=== PATIENT | male | born 1945 | race Caucasian/White ===

== ENCOUNTER 2021-03-04 12:47 | Inpatient (IN) | payer MEDICARE, OTHER ==
[~2021-03-04] VITALS: Ht 172.7 cm; Wt 85.7 kg
[2021-03-04 14:06] LABS: HEMOGLOBIN 13.4 gm/dl (14.0-17.5); RED BLOOD COUNT 4.39 M/UL (4.20-5.50)
[2021-03-04 14:34] LABS: BUN/CREATININE RATIO 11 (0-10)
[2021-03-04] MEDS ORDERED: COLACE 100MG C100 MG PO (17:50)
[2021-03-04] MEDS ORDERED: ASPIRIN EC81 MG PO (17:50)
[2021-03-05 01:46] LABS: HEMOGLOBIN 14.3 gm/dl (14.0-17.5); RED BLOOD COUNT 4.69 M/UL (4.20-5.50); WHITE BLOOD COUNT 12.9 K/UL (4.5-11.0)
[2021-03-05 02:15] LABS: BUN/CREATININE RATIO 15 (0-10)
[2021-03-06 05:08] LABS: HEMOGLOBIN 14.3 gm/dl (14.0-17.5); RED BLOOD COUNT 4.66 M/UL (4.20-5.50); WHITE BLOOD COUNT 10.4 K/UL (4.5-11.0)
[2021-03-06 05:24] LABS: BUN/CREATININE RATIO 15 (0-10)
[2021-03-07 05:49] LABS: HEMOGLOBIN 14.4 gm/dl (14.0-17.5); RED BLOOD COUNT 4.74 M/UL (4.20-5.50)
[2021-03-07 05:50] LABS: WHITE BLOOD COUNT 7.7 K/UL (4.5-11.0)
[2021-03-07 06:10] LABS: BUN/CREATININE RATIO 19 (0-10)
[2021-03-08 05:30] LABS: HEMOGLOBIN 14.2 gm/dl (14.0-17.5); RED BLOOD COUNT 4.67 M/UL (4.20-5.50)
[2021-03-08 05:49] LABS: BUN/CREATININE RATIO 24 (0-10)
[2021-03-08] MEDS ORDERED: HYZAAR 100-12.1 EACH PO (14:58)
[2021-03-08] MEDS ORDERED: DILTIAZEM 24HR360 MG PO (14:58)
[2021-03-08] MEDS ORDERED: COREG25 MG PO (14:58)
[2021-03-08] MEDS ORDERED: ELIQUIS 5 MG TAB5 MG PO (15:31)
[2021-03-08] MEDS ORDERED: LOPRESSOR 25 MG25 MG PO (15:31)
[2021-03-08] MEDS ORDERED: CEFUROXIME250 MG PO (15:31)
== END 2021-03-08 17:43 | disposition home or self-care (01) | DRG 308 ==
LOC: ER1 12:47 → CCU 16:07 → M/S 16:07 → CDU 16:07 → 2 EAST 18:26 → CCU 03-05 02:44 → M/S 03-07 21:30
PROVIDERS: Emergency Medicine; Physician Assistant; ADMIT Internal Medicine
PROC: B24BZZZ Ultrasonography of Heart with Aorta (ICD-10-PCS; principal; 2021-03-04)
DX: R00.1 Bradycardia, unspecified (principal); R57.0 Cardiogenic shock; N30.00 Acute cystitis without hematuria; N17.9 Acute kidney failure, unspecified; I47.2 Ventricular tachycardia; I95.9 Hypotension, unspecified; I48.91 Unspecified atrial fibrillation; Z20.822 Contact with and (suspected) exposure to COVID-19; G47.33 Obstructive sleep apnea (adult) (pediatric); T44.7X5A Adverse effect of beta-adrenoreceptor antagonists, initial encounter; T46.1X5A Adverse effect of calcium-channel blockers, initial encounter; I08.1 Rheumatic disorders of both mitral and tricuspid valves; N40.0 Benign prostatic hyperplasia without lower urinary tract symptoms; I27.20 Pulmonary hypertension, unspecified; Z79.01 Long term (current) use of anticoagulants; Z98.890 Other specified postprocedural states; Z99.81 Dependence on supplemental oxygen; Z82.49 Family history of ischemic heart disease and other diseases of the circulatory system; Z79.82 Long term (current) use of aspirin; Z95.0 Presence of cardiac pacemaker
CPT/HCPCS: ECHO; 36415; 36556; 71045; 80048; 80053; 81001; 82550; 82553; 82728; 83605; 83690; 83735; 84100; 84132; 84439; 84443; 84484; 85025; 85379; 85610; 85730; 86140; 93005; 93270; 93306; 94660; 94760; 99291; 99292; C9113; J0282; J0461; J0696; J1265; J1650; J2405; J7050; U0002

== ENCOUNTER → 2021-04-07 | Outpatient (CLI) | payer MEDICARE ==
[~2021-04-07] MED LIST: ASPIRIN EC81 MG PO; CEFUROXIME250 MG PO; COLACE 100MG C100 MG PO; COREG25 MG PO; DILTIAZEM 24HR360 MG PO; ELIQUIS 5 MG TAB5 MG PO; HYZAAR 100-12.1 EACH PO; LOPRESSOR 25 MG25 MG PO
== END ==
LOC: HEART 5 08:15
DX: I47.2 Ventricular tachycardia (principal)
CPT/HCPCS: 78452; A9502

== ENCOUNTER → 2021-09-22 | Outpatient (CLI) | payer MEDICARE ==
[~2021-09-22] MED LIST changes: +ASPIRIN CHEWABL81 MG PO; +LISINOPRIL5 MG PO
== END ==
LOC: HEART 5 13:00
DX: I42.0 Dilated cardiomyopathy (principal)
CPT/HCPCS: 78472; A9560

== ENCOUNTER → 2021-10-14 | Outpatient (CLI) | payer MEDICARE, OTHER ==
[~2021-10-14] MED LIST changes: +CLINDAMYCIN HC300 MG PO; +COLACE100 MG PO; +HYDROCODON-ACE1 EAC4 PO; +LEVOFLOXACIN500 MG PO; +LISINOPRIL20 MG PO; -LISINOPRIL5 MG PO; +LOPRESSOR50 MG PO; +NORVASC5 MG PO; +PACERONE200 MG PO; +TOPROL XL25 MG PO
[2021-10-14 10:33] LABS: HEMOGLOBIN 15.5 gm/dl (14.0-17.5); RED BLOOD COUNT 5.17 M/UL (4.20-5.50); WHITE BLOOD COUNT 6.9 K/UL (4.5-11.0)
[2021-10-14 11:19] LABS: BUN/CREATININE RATIO 11 (0-10)
== END ==
LOC: LAB 09:40
PROVIDERS: Internal Medicine Cardiovascular Disease
DX: I10 Essential (primary) hypertension (principal); I42.9 Cardiomyopathy, unspecified; I42.0 Dilated cardiomyopathy; I48.0 Paroxysmal atrial fibrillation; R06.02 Shortness of breath; Z20.822 Contact with and (suspected) exposure to COVID-19; J98.4 Other disorders of lung
CPT/HCPCS: 36415; 71046; 80048; 85025; U0003

== ENCOUNTER 2021-10-18 09:29 | Outpatient (CLI) | payer MEDICARE ==
[~2021-10-18] VITALS: Ht 177.8 cm; Wt 88.0 kg
[~2021-10-18 09:29] MED LIST changes: -CLINDAMYCIN HC300 MG PO; -COLACE100 MG PO; -HYDROCODON-ACE1 EAC4 PO; -LEVOFLOXACIN500 MG PO; -LOPRESSOR50 MG PO; -NORVASC5 MG PO; -PACERONE200 MG PO; -TOPROL XL25 MG PO
[2021-10-18] MEDS ORDERED: NORVASC5 MG PO (10:47)
[2021-10-18] MEDS ORDERED: HYDROCODON-ACE1 EAC4 PO (16:17)
[2021-10-18] MEDS ORDERED: PACERONE200 MG PO (16:17)
[2021-10-18] MEDS ORDERED: TOPROL XL25 MG PO (16:17)
[2021-10-18] MEDS ORDERED: LEVOFLOXACIN500 MG PO (16:17)
[2021-10-18] MEDS ORDERED: CLINDAMYCIN HC300 MG PO (16:17)
[2021-10-18] MEDS ORDERED: LOPRESSOR50 MG PO (17:13)
[2021-10-18] MEDS ORDERED: COLACE100 MG PO (17:15)
== END 2021-10-19 11:28 | disposition home or self-care (01) ==
LOC: CATH 09:29 → PROG CARE 16:45 → CATH 10-19 11:28
DX: I49.01 Ventricular fibrillation (principal); I47.2 Ventricular tachycardia; I42.0 Dilated cardiomyopathy; I48.0 Paroxysmal atrial fibrillation; I11.0 Hypertensive heart disease with heart failure; I50.20 Unspecified systolic (congestive) heart failure; E66.9 Obesity, unspecified; G47.33 Obstructive sleep apnea (adult) (pediatric); Z79.82 Long term (current) use of aspirin; Z79.01 Long term (current) use of anticoagulants; Z20.822 Contact with and (suspected) exposure to COVID-19; Z68.27 Body mass index [BMI] 27.0-27.9, adult
CPT/HCPCS: 33249; 71045; 92960; 93620; 93641; 99152; 99153; C1721; C1730; C1766; C1777; C1898; J1644; J2250; J3010; J3370; J7040; J7050; J7070